=== PATIENT | female | born 1955 | race Two or more races ===

== ENCOUNTER 2017-12-12 10:47 | Outpatient (CLI) | payer OTHER | END 2017-12-12 10:53 | disposition home or self-care (01) | LOC: SONOGRAMA 10:47 | DX: E04.2 Nontoxic multinodular goiter (principal) ==

== ENCOUNTER 2025-02-03 15:19 | Outpatient (CLI) | payer OTHER | END 2025-02-03 15:22 | disposition home or self-care (01) | LOC: SONOGRAMA 15:19 | PROVIDERS: ATTEND Pathology Anatomic Pathology & Clinical Pathology | DX: D34 Benign neoplasm of thyroid gland (principal); E04.2 Nontoxic multinodular goiter ==